=== PATIENT | male | born 1985 | race Caucasian/White ===

== ENCOUNTER 2017-10-09 18:22 | Emergency (ER) | payer MEDICAID, OTHER, SELFPAY ==
[2017-10-09 18:34] VITALS: BP 153/89; PULSE 91; PULSE 93; RESP 17; RESP 18; TEMP 37.4; O2SAT 98; BMI 22.4
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
[2017-10-09] MEDS: Naproxen 250 MG Tablet 500 MG PO (19:57)
== END 2017-10-09 19:59 | disposition home or self-care (01) ==
LOC: ED 19:25
PROVIDERS: Emergency Provider Emergency Medicine
DX: S90.31XA Contusion of right foot, initial encounter (principal); I25.10 Atherosclerotic heart disease of native coronary artery without angina pectoris; W22.09XA Striking against other stationary object, initial encounter; Y93.9 Activity, unspecified; Y92.9 Unspecified place or not applicable; Y99.9 Unspecified external cause status; Z72.0 Tobacco use
CPT/HCPCS: 73630; 99283